=== PATIENT | female | born 1990 | race Caucasian/White ===

== ENCOUNTER 2018-02-28 23:45 | Observation (INO) | payer OTHER ==
--- NOTE | 2018-03-01 11:19 | PN- OBGYN ---
Surgical Brief Attending Note Brief Attending Note: pt andrea less frequently, mild , appears comfortable afeb, v/ss fht cat 1 sono - vtx , calixto 9 sve unchanged, 1cm a/p p0 40wks prolonged latent phase, and maternal status reassuring -d/c home w/ labor precautions -rto 3d for nst / bpp
== END 2018-03-01 10:45 ==
LOC: CBCO 23:45 → GNO 03-01 00:31
DX: O47.1 False labor at or after 37 completed weeks of gestation (principal); Z3A.40 40 weeks gestation of pregnancy
CPT/HCPCS: 96360; 96361; 96372; G0378; G0463; J2270

== ENCOUNTER 2018-03-01 17:59 | Inpatient (IN) | payer OTHER ==
[~2018-03-01] VITALS: Ht 170.2 cm; Wt 97.1 kg
[2018-03-01 18:22] VITALS: BP 116/78
[2018-03-01 18:54] LABS: ABSOLUTE BASOPHIL COUNT 0 /CUMM (0.0-0.2); ABSOLUTE EOSINOPHIL COUNT 0 /CUMM (0.0-0.7); ABSOLUTE GRANULOCYTE CT 12.7 /CUMM (1.4-6.5); ABSOLUTE LYMPH COUNT 1.3 /CUMM (1.2-3.4); ABSOLUTE MONOCYTE COUNT 0.9 /CUMM (0.10-0.60); BASOPHIL % 0.2 % (0.0-2.0); EOSINOPHIL % 0.1 % (0-5); MEAN CORPUSCULAR HGB 31.4 PG (27.0-31.0); MEAN CORPUSCULAR HGB CONC 33.8 G/DL (33.0-37.0); MEAN CORPUSCULAR VOLUME 92.9 FL (81.0-99.0); MEAN PLATELET VOLUME 8.8 FL (7.4-10.4); PLATELET COUNT 216 /CUMM (130-400); RBC DISTRIBUTION WIDTH 13.8 % (11.5-14.5); RED BLOOD CELL CT 4.09 /CUMM (4.20-5.40); WHITE BLOOD CELL COUNT 14.9 /CUMM (4.8-10.8)
[2018-03-01 19:03] LABS: GRANULOCYTE % 85.4 % (42.2-75.2)
--- NOTE | 2018-03-01 19:50 | History & Physical ---
General Information and HPI MD Statement: I have seen and personally examined ANSLEY CALHOUN and documented this H&P. Source of Information: patient, old records Exam Limitations: no limitations History of Present Illness: The patient is a 28 year old at 40 weeks and 2 days gestation who presented with a chief complaint of painful ctx. No LOF / VB. +FM. Pt admitted last night for therapeutic rest. Exam unchanged at 1cm and d/c'd home. AP care uncomplicated. 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 No Contractions: q 3-5 Infant #1 - FHR Baseline: 130 Category: 2 Estimated Weight: 3600 Presentation: vtx Patient for Induction? No Labs Blood Type & Rh: O pos Antibody Screen: neg Hct/Hgb & Platelets #1: 13.2/ 40.8, 226 Hct/Hgb & Platelets #2: 11.2/ 35.3, 226 Rubella: imm VDRL #1: neg VDRL #2: neg HbsAg: neg HIV #1: neg HIV #2 neg 1 Hr P Group B Strep: neg Initial Ultrasound: 07/28/17 siup 9+2 Anatomy Ultrasound: 10/20/17 21+3 nl tree, small isolated contamination consultant Genetic Testing: hgb AA, CF neg nl NT, nl cffdna Last 24 Hrs of Labs/Juan Manuel: Laboratory Tests 03/01/18 1830: CBC w Diff NO MAN DIFF REQ, RBC 4.09 L, MCV 92.9, MCH 31.4 H, MCHC 33.8, RDW 13.8, MPV 8.8, Gran % 85.4 H, Lymphocytes % 8.4 L, Monocytes % 5.9, Eosinophils % 0.1, Basophils % 0.2, Absolute Granulocytes 12.7 H, Absolute Lymphocytes 1.3, Absolute Monocytes 0.9 H, Absolute Eosinophils 0, Absolute Basophils 0, Urine Color YEL, Urine Clarity CLEAR, Urine pH 6.0, Ur Specific [place] 1.025, Urine Protein NEG, Urine Ketones TRACE H, Urine Nitrite NEG, Urine Bilirubin NEG, Urine Urobilinogen 0.2, Ur Leukocyte Esterase NEG, Ur Microscopic EXAM NOT REQUIRED, Urine Hemoglobin NEG, Urine Glucose NEG Microbiology 03/01 1929 URINE ROUT: Urine Culture - COLB Assessment/Plan Assessment/Plan: 28yo 40+2wks early labor, GBS neg, intact, and maternal status reassuring, desires anesthesia -Admit -expectant mgmt -anesthesia for epidural -ANSVD As Ranked By This Provider Problem List: 1. Core Measures Venous Thromboembolism VTE Risk Factors / No Mechanical VTE Prophylaxis d/t Early Ambulation No VTE Pharm Prophylaxis d/t LowRisk-No Interven Req'd
--- NOTE | 2018-03-01 22:47 | PN- OBGYN ---
Surgical Brief Attending Note Brief Attending Note: pt comfortable w/ epidural afeb, v/ss fht 130s moderate variability +acc no dec toco q 2-4 sve 4/100/-2, intact p0 40+wks early labor, intact, gbs neg, and maternal status reassuring cont current mgmt ansvd
--- NOTE | 2018-03-02 07:02 | PN- OBGYN ---
Surgical Brief Attending Note Brief Attending Note: pt comfortable. s/p srom 3a. afeb, v/ss fht 130s mod variability +acc no dec toco q 2-3 sve 8/100/0 a/p p0 40wks active labor, gbs neg, and maternal status reassuring -cont expectant mgmt -ansvd
[2018-03-03 09:04] LABS: ABSOLUTE BASOPHIL COUNT 0.1 /CUMM (0.0-0.2); ABSOLUTE EOSINOPHIL COUNT 0 /CUMM (0.0-0.7); ABSOLUTE GRANULOCYTE CT 12.9 /CUMM (1.4-6.5); ABSOLUTE LYMPH COUNT 2.4 /CUMM (1.2-3.4); ABSOLUTE MONOCYTE COUNT 1.1 /CUMM (0.10-0.60); BASOPHIL % 0.4 % (0.0-2.0); EOSINOPHIL % 0.2 % (0-5); GRANULOCYTE % 78.7 % (42.2-75.2); HEMATOCRIT 37.6 % (37-47); MEAN CORPUSCULAR HGB 31.1 PG (27.0-31.0); MEAN CORPUSCULAR HGB CONC 32.9 G/DL (33.0-37.0); MEAN CORPUSCULAR VOLUME 94.4 FL (81.0-99.0); MEAN PLATELET VOLUME 9.9 FL (7.4-10.4); PLATELET COUNT 174 /CUMM (130-400); RBC DISTRIBUTION WIDTH 14.4 % (11.5-14.5); RED BLOOD CELL CT 3.99 /CUMM (4.20-5.40); WHITE BLOOD CELL COUNT 16.4 /CUMM (4.8-10.8)
--- NOTE | 2018-03-03 13:29 | PN- Post Delivery/GYN ---
Subjective Subjective: Feels well . "Tired". Baby latching well. +void. Lochia mild rubra. Objective Physical Exam: Breasts - nipples crusted, no mass or erythema Abd - soft, NT, fundus firm and NT Back - FROM, no CVAT Perineum - visually intact Extr - 1-2+ bipedal edema no calf cords or tenderness Last 24 Hrs of Labs/Juan Manuel: Laboratory Tests 03/03/18 0723: CBC w Diff NO MAN DIFF REQ, RBC 3.99 L, MCV 94.4, MCH 31.1 H, MCHC 32.9 L, RDW 14.4, MPV 9.9, Gran % 78.7 H, Lymphocytes % 14.3 L, Monocytes % 6.4, Eosinophils % 0.2, Basophils % 0.4, Absolute Granulocytes 12.9 H, Absolute Lymphocytes 2.4, Absolute Monocytes 1.1 H, Absolute Eosinophils 0, Absolute Basophils 0.1 Assessment/Plan Assessment/Plan stable , continue routine care Attending MD Review Statement Attending Statement Attending MD Statement: examined this patient
[2018-03-04] MEDS ORDERED: IBUPROFEN800 M1 PO (08:15)
--- NOTE | 2018-03-04 08:23 | PN- Post Delivery/GYN ---
Subjective Subjective: feeling well Review of Systems Constitutional: Denies: chills, fever. EENTM: Denies: blurred vision, double vision, visual changes. Cardiovascular: Denies: chest pain. Respiratory: Denies: short of breath. Gastrointestinal: Denies: diarrhea, nausea, vomiting. Genitourinary: Denies: dysuria. Musculoskeletal: Denies: back pain. Neurological/Psychological: Denies: anxiety, depressed. Objective Last 24 Hrs of Vital Signs/I&O vss Physical Exam General Appearance Alert, Oriented X3, Cooperative, No Acute Distress Cardiovascular Regular Rate Lungs Clear to Auscultation Abdomen Soft, fundus firm Neurological Normal Tone Extremities No Clubbing (2+ pedal) Rectal Guiac Negative (lochia serosanganous) Current Medications: Current Medications Sig/Roberto Start time Last Medication Dose Route Stop Time Status Admin Acetaminophen 650 MG Q4P PRN 03/02 1130 AC PO Hydroxyzine HCl 50 MG AT BEDTIME NEED.. 03/02 1130 AC PO Ibuprofen 800 MG Q6P PRN 03/02 1130 AC 03/03 PO 2230 Magnesium Hydroxide 30 ML DAILY PRN 03/02 1130 AC PO Assessment/Plan Assessment/Plan PPD #2 vss afebrile plan d/c home Problem List: 1. Attending MD Review Statement Attending Statement Attending MD Statement: examined this patient, discussed with family, discussed with nursing
== END 2018-03-04 12:15 | DRG 775 ==
LOC: CBCO 17:59 → GNO 18:14
PROVIDERS: Obstetrics & Gynecology
PROC: 10E0XZZ Delivery of Products of Conception, External Approach (ICD-10-PCS; principal; 2018-03-02)
DX: O80 Encounter for full-term uncomplicated delivery (principal); Z3A.40 40 weeks gestation of pregnancy; Z37.0 Single live birth
CPT/HCPCS: 87070; 87075; 87184; 87205; GNOP; GNOS; 81003; 87086; 87147; 88307; J0131; J1885; J3490; J7120